=== PATIENT | female | born 1950 | race Caucasian/White ===

== ENCOUNTER 2023-11-10 08:42 | Emergency (ER) | payer OTHER ==
[~2023-11-10] VITALS: Ht 160 cm; Wt 55.0 kg
[2023-11-10 08:48] VITALS: O2SAT 99
[2023-11-10 10:40] VITALS: BP 137/68; PULSE 78; RESP 18; TEMP 98.6
== END 2023-11-10 10:46 | disposition home or self-care (01) ==
LOC: ER 08:42
DX: M25.512 Pain in left shoulder (principal); I10 Essential (primary) hypertension; Z88.8 Allergy status to other drugs, medicaments and biological substances
CPT/HCPCS: 73030; 99283